=== PATIENT | female | born 1985 | race Caucasian/White ===

== ENCOUNTER 2023-11-18 15:33 | Outpatient (REF) | payer SELFPAY ==
[2023-11-18 18:04] LABS: Blood Urea Nitrogen 10 mg/dL (9-16); Estimated Glomerular Filt Rate > 60
== END 2023-11-18 15:34 | disposition home or self-care (01) ==
LOC: HO.CHCLDS 15:33
PROVIDERS: Visit Provider Otolaryngology
DX: R22.1 Localized swelling, mass and lump, neck (principal)
CPT/HCPCS: 36415; 82565; 84520

== ENCOUNTER 2024-02-03 10:09 | Outpatient (REF) | payer BC, SELFPAY ==
[2024-02-03 15:36] LABS: Creatinine Urine 64.87 mg/dL; Microalbumin Urine < 5.0 mg/L
[2024-02-03 16:33] LABS: Estimated Average Glucose 189 mg/dL; Hemoglobin A1c % 8.2 % (<6.0)
[2024-02-03 18:25] LABS: Alanine Aminotransferase 29 U/L (0-31); Albumin Level 4.5 g/dL (3.5-5.0); Alkaline Phosphatase 54 U/L (39-117); Anion Gap 15 (12-20); Aspartate Amino Transferase 21 U/L (5-31); Bilirubin Total 0.3 mg/dL (0.0-1.0); Blood Urea Nitrogen 11 mg/dL (9-16); Calcium 9.5 mg/dL (8.4-10.2); Carbon Dioxide 23 mmol/L (22-29); Chloride 104 mmol/L (96-108); Cholesterol 219 mg/dL (<200); Estimated Glomerular Filt Rate > 60; Glucose Fasting 152 mg/dL (60-99); HDL Cholesterol 35 mg/dL (>40); Potassium 3.7 mmol/L (3.3-5.1); Sodium 138 mmol/L (135-145); Total Protein 7.4 g/dL (6.5-8.0); Triglycerides 500 mg/dL (<150)
[2024-02-03 18:26] LABS: TSH reflex Free T4 2.08 uIU/mL (0.32-4.0)
[2024-02-06 11:51] LABS: C Peptide 2.47
[2024-02-07 14:59] LABS: Glutamic acid decarboxylase Ab >250 IU/mL (<5)
[2024-02-11 17:18] LABS: Insulinoma associated 2 aatb <5.4 U/mL (<5.4)
[2024-02-13 20:03] LABS: ZNT8 Antibodies <10 U/mL (<15)
== END 2024-02-03 10:10 | disposition home or self-care (01) ==
LOC: HO.CHCLDS 10:09
PROVIDERS: Visit Provider Internal Medicine
DX: E11.65 Type 2 diabetes mellitus with hyperglycemia (principal); Z79.4 Long term (current) use of insulin; E03.9 Hypothyroidism, unspecified
CPT/HCPCS: 80053; 80061; 82043; 82570; 83036; 84443; 84681; 86341